=== PATIENT | female | born 1980 | race Asian ===

== ENCOUNTER 2016-08-30 17:45 | Emergency (ER) | payer BC ==
[2016-08-30 17:51] VITALS: BMI 21.3
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
[2016-08-30 18:58] LABS: BASOPHIL 0.9 % (0-2.0); MCH 29.8 pg (25.7-33.7); MCHC 33.4 g/dl (32.0-36.0); MEAN CELL VOLUME 89.2 fl (80-96); MEAN PLT VOLUME 8.5 fl (7.5-11.1); NEUTROPHILS 51.1 % (42.8-82.8); PLATELET COUNT 200 K/MM3 (134-434); RDW 13.6 % (11.6-15.6); WHITE BLOOD COUNT 9.4 K/mm3 (4.0-10.0)
[2016-08-30 19:41] LABS: ALBUMIN 4.2 g/dl (3.4-5.0); ALK PHOS 40 U/L (45-117); ANION GAP 7 (8-16); CALCIUM 9.1 mg/dL (8.5-10.1); CO2 26 mmol/L (21-32); CREATININE 0.7 mg/dL (0.55-1.02); GLUCOSE,RANDOM 90 mg/dL (74-106); SGOT/AST 17 U/L (15-37); SGPT/ALT 15 U/L (12-78)
[2016-08-30 19:56] LABS: URINE APPEARANCE CLEAR; URINE BILIRUBIN NEGATIVE (NEGATIVE); URINE BLOOD NEGATIVE (NEGATIVE); URINE COLOR LT. YELLOW; URINE GLUCOSE (UA) NEGATIVE (NEGATIVE); URINE KETONE NEGATIVE (NEGATIVE); URINE NITRITE NEGATIVE (NEGATIVE); URINE PROTEIN NEGATIVE (NEGATIVE); URINE UROBILINOGEN 0.2 E.U/dl E.U./dl (0.2-1.0)
[2016-08-30 19:57] LABS: URINE LEUK ESTERASE 2+ (NEGATIVE)
[2016-08-30 20:10] LABS: URINE RBC 1 /hpf (0-3); URINE WBC 20 /hpf (3-5)
[2016-08-30] MEDS ORDERED: KETOROLAC TROMETHAMINE 30 MG/1 ML VIAL IVPUSH ONE (21:55)
[2016-08-30] MEDS ORDERED: KETOROLAC TROMETHAMINE 30 MG/1 ML VIAL ONE (22:01)
[2016-08-31 01:47] VITALS: BP 120/73; PULSE 62; TEMP 98.5
== END 2016-08-30 22:37 | disposition home or self-care (01) ==
LOC: JER 17:45
PROC: 3E0333Z Introduction of Anti-inflammatory into Peripheral Vein, Percutaneous Approach (ICD-10-PCS; principal; 2016-08-30)
DX: R10.32 Left lower quadrant pain (principal); N83.202 Unspecified ovarian cyst, left side
CPT/HCPCS: 36415; 74177-TC; 76830-TC; 80053; 81003; 81015; 84703; 85025; 99283-25; Q9967

== ENCOUNTER 2018-12-18 17:58 | Inpatient (IN) | payer BC, OTHER ==
--- NOTE | 2018-12-18 19:11 | PDOC ---
History of Present Illness - General Chief Complaint: Pain, Acute Stated Complaint: APPENDICITIS Time Seen by Provider: 12/18/18 18:33 History Source: Patient - History of Present Illness Initial Comments: 12/18/18 19:04 38 yo F with Hx of R ovarian cyst, L4-L5 herniated disc presented to the ED from her PMD office ( Dr. Waggoner) for abdominal pain. Pt states that this pain began early yesterday in the lower abdomen. pt states that nothing makes the pain better or worse. Pt describes a stabbing pain 7/10 intensity. pt states the pain does not radiate. Pt endorses nausea but denies vomiting, diarrhea, constipation. Pt states she has dizziness, headaches. Pt states her LMP was last week. Pt denies sexual activity. Pt denies dysuria, hematuria, hematochezia. Modifying Factors: worse with: eating, medication (has not tried taking anything for pain) Past History - Past Medical History Allergies/Adverse Reactions: Allergies Allergy/AdvReac Type Severity Reaction Status Date / Time cyclobenzaprine HCl Allergy Intermediate Rash Verified 08/30/16 17:46 [From Flexeril] Home Medications: Ambulatory Orders Cholecalciferol (Vitamin D3) [Vitamin D3 -] 1,000 unit PO DAILY 12/18/18 COPD: No CHF: No DVT: No Dementia: No - Surgical History Comments:: 12/18/18 19:12 Parathyroidectomy, 201412/18/18 19:12 - Reproductive History LMP comment: last week Comment:: 12/18/18 19:13 Hx of R ovarian cyst - Immunization History Immunization Up to Date: Yes - Psycho Social/Smoking Cessation Hx Smoking Status: No Smoking History: Never smoked Hx Alcohol Use: No Drug/Substance Use Hx: No Review of Systems - Review of Systems Able to Perform ROS?: Yes Constitutional: Yes: Weight Stable. No: Chills, Diaphoresis, Fever, Loss of Appetite, Weakness, Unintentional Wgt. Loss, Unexplained wgt Loss Respiratory: No: Shortness of Breath Cardiac (ROS): Yes: Lightheadedness. No: Chest Pain ABD/GI: Yes: Nausea, Abdominal cramping. No: Blood Streaked Bowels, Constipated , Diarrhea, Poor Appetite, Rectal Bleeding, Vomiting, Tarry Stools : Yes: Flank Pain. No: Dysuria, Discharge, Frequency, Incontinence Musculoskeletal: Yes: Back Pain Endocrine: No: Change in Weight *Physical Exam - Vital Signs Last Vital Signs Temp Pulse Resp BP Pulse Ox 98.2 F 67 16 116/74 100 12/18/18 18:05 12/18/18 18:05 12/18/18 18:05 12/18/18 18:05 12/18/18 18:05 - Physical Exam General Appearance: Yes: Nourished, Appropriately Dressed HEENT: positive: EOMI, Normal Voice, Pharynx Normal. negative: Pharyngeal Erythema Neck: positive: Normal Thyroid, Lymphadenopathy (L) Respiratory/Chest: positive: Lungs Clear, Normal Breath Sounds. negative: Crackles, Rales, Rhonchi, Stridor, Wheezing Cardiovascular: positive: Regular Rhythm, Regular Rate, S1, S2 Gastrointestinal/Abdominal: positive: Normal Bowel Sounds, Tender (RLQ, LLQ, suprapubic tenderness to palpation . + Hull sign , + Left CVA tenderness ), Soft, Tenderness. negative: Distended, Hepatomegaly Rectal Exam: positive: normal exam, normal rectal tone, other (No stool in vault , good sphincter tone, no external hemorrhoid visualized, no internal hemorrhoid felt , no active bleeding noted, no blood on tip of glove ). negative: melena Musculoskeletal: positive: CVA Tenderness (L) Extremity: positive: Normal Capillary Refill, Normal Inspection Integumentary: positive: Normal Color, Dry, Warm Neurologic: positive: Fully Oriented ED Treatment Course - LABORATORY CBC & Chemistry Diagram: 12/18/18 19:25 12/18/18 19:25 Medical Decision Making - Medical Decision Making 12/18/18 19:23 38 yo F presented to the ED with lower abdominal pain from PMD -r/o appendicitis -r/o ovarian cyst -r/o pyelonephritis -CT abdomen pelvis with oral contrast -bedside u/s suggestive of appendicitis, + ultrasonographic murphys sign. Surgery consulted -+ CVA tenderness on L. awaiting Ucx. -pending CMP, CBC, lipase -IVF -pain mgmt prn -NPO after midnight in case of procedure -EKG reviewed, NSR 12/18/18 19:55 12/18/18 23:[address] findings, possible Crohn's disease CT findings: There is marked thickening and irregularity of the terminal ileum. This appearance is suspicious for Crohn's disease. Clinical correlation is advised. No CT evidence of appendicitis. The liver, spleen, pancreas, adrenal glands and kidneys demonstrate no significant abnormalities. There are a few small hypodensities within the liver that most likely represent cysts, however, they 're too small to accurately characterize. The gallbladder is clear. Spoke with GI [facility] (Dr. Gomez). unclear whether pt has Crohns vs mesenteric ileitis. recommends keeping NPO, IVF. admit to GI service. possible colonoscopy outpt or next week. 12/18/18 23:59 Rectal exam performed. see PE. FOBT sent Discharge - Follow up/Referral Referrals: Ya Waggoner MD [Primary Care Provider] - - Patient Discharge Instructions - Post Discharge Activity
[2018-12-18 19:38] LABS: BASO % 0.9 % (0-2.0); EOS % 12.3 % (0-4.5); HEMATOCRIT 38.2 % (32.4-45.2); HEMOGLOBIN 12.8 GM/dL (10.7-15.3); MCHC 33.5 g/dl (32.0-36.0); MEAN CELL VOLUME 89.6 fl (80-96); MEAN PLT VOLUME 8.4 fl (7.5-11.1); NEUT % 40.8 % (42.8-82.8); PLATELET COUNT 241 K/MM3 (134-434); RBC 4.26 M/mm3 (3.60-5.2); RDW 13.2 % (11.6-15.6); WHITE BLOOD COUNT 8.6 K/mm3 (4.0-10.0)
[2018-12-18 19:49] LABS: INR 1.13 (0.83-1.09); PROTHROMBIN TIME (PATIENT) 13.3 SEC (9.7-13.0)
--- NOTE | 2018-12-18 19:49 | PDOC ---
Documentation entered by Blessing Parra SCRIBE, acting as scribe for Yumi Matos DO. Yumi Matos DO: This documentation has been prepared by the Aida thomas Adrianna, SCRIBE, under my direction and personally reviewed by me in its entirety. I confirm that the documentation accurately reflects all work, treatment, procedures, and medical decision making performed by me. Attending Attestation - Resident Resident Name: MelnidaCriselda - ED Attending Attestation I have performed the following: I have examined & evaluated the patient, The case was reviewed & discussed with the resident, I agree w/resident's findings & plan, Exceptions are as noted - HPI HPI: The patient is a 38 year old female, with a significant PMH of right ovarian cysts, L4-L5 disc herniation, who presents to the ED for evaluation of abdominal pain for 2 days. Patient notes sudden onset lower abdominal pain that began yesterday morning, which she describes as stabbing, is a 7/10 in nature, and is worse with eating. Patient endorses associated nausea, dizziness, and headache. Otherwise, denies any complaints. LMP was last week, denies any sexual activity. Allergies: cyclobenzaprine HCl Surgical History: Parathyroidectomy Social History: Denies EtOH, tobacco, or illicit drug use PCP: Dr. Waggoner - Physicial Exam PE: Constitutional: Awake, alert, oriented. No acute distress. Head: Normocephalic. Atraumatic Eyes: EOMI. Conjunctivae are not pale. ENT: Mucous membranes are moist and intact. Neck: Supple. Full ROM. No lymphadenopathy. Cardiovascular: Regular rate. Regular rhythm. S1, S2 regular. Distal pulses are 2+ and symmetric. Pulmonary/Chest: No evidence of respiratory distress. Clear to auscultation bilaterally No wheezing, rales or rhonchi. Abdominal: +Tender to palpation over McBurnys. +Left lower pelvis tenderness to palpation (patient has an ovarian cyst at this site). Soft and non-distended. No rebound, guarding or rigidity. No organomegaly. No palpable masses. Good bowel sounds. Back: +Left CVA tenderness. Musculoskeletal: No edema. No cyanosis. No clubbing. Full range of motion in all extremities. Nocalf tenderness. Radial/pedal pulses are intact and 2+ bilaterally Skin: +Well-healed anterior scar over the throat from a parathyroidectomy. Skin is warm and dry. No petechiae. No purpura. Neurological: Alert and oriented to person, place, and time. Cranial nerves II -XII are grossly intact. Normal speech. Strength is grossly symmetric. No sensory deficits. Psychiatric: Good eye contact. Normal interaction, affect and behavior. 12/18/18 19:44 - Medical Decision Making 12/18/18 19:44 I, Dr. Yumi Matos, DO, attest that this document has been prepared under my direction and personally reviewed by me in its entirety. I further attest, that it accurately reflects all work, treatment, procedures and medical decision -making performed by me. a/p: 38yo female with abd pain and nausea that started today -sent from Dr. Skaggs for eval of poss appy -RLQ pain, also LLQ pain/l cva ttp -no v/d -at [facility] at 4p -pt with pain over mc burneys point, no rebound ttp, also L pelvic pain and L cva pain -hx of ovarian cysts as well -will send labs -bedside ultrasound shows enlarged noncompressible appy -will send for ct -Family requests Dr. Tariq 12/18/18 19:[address] Tariq who is at the bedside to see the patient based on ultrasound results, but requests ct 12/18/18 19:57 no elevated wbc ua pending, chem pending ct pending 12/18/18 23:25 inflamed terminal ileum - dr. tariq updated, not acute appy call placed to Dr. Gomez 12/18/18 23:30 dr tariq updated resident updated the fam/pt and currently is discussing the case with Dr. Gomez 12/19/18 00:14 resident discussed the case with [facility] who accepts pt to service Heart Score/ECG Review - ECG Intrepretation Comment:: 12/18/18 19:47 sinus at 64, nl axis, incomplete rbbb, no acute st/t wave findings ED Treatment Course - LABORATORY CBC & Chemistry Diagram: 12/18/18 19:25 12/18/18 19:25 - ADDITIONAL ORDERS Additional order review: Laboratory Results 12/18/18 12/18/18 12/18/18 21:52 19:25 19:25 PT with INR INR Sodium Potassium Chloride Carbon Dioxide Anion Gap BUN Creatinine Est GFR (CKD-EPI)AfAm Est GFR (CKD-EPI)NonAf Random Glucose Calcium Total Bilirubin AST ALT Alkaline Phosphatase Total Protein Albumin Serum , Qual Negative Urine Color Yellow Urine Appearance Clear Urine pH 6.5 Ur Specific [place] 1.007 L Urine Protein Negative Urine Glucose (UA) Negative Urine Ketones Trace H Urine Blood Negative Urine Nitrite Negative Urine Bilirubin Negative Urine Urobilinogen 0.2 Ur Leukocyte Esterase Negative Blood Type O POSITIVE Antibody Screen Negative 12/18/18 12/18/18 19:25 19:25 PT with INR 13.30 H INR 1.13 H Sodium 139 Potassium 4.4 Chloride 106 Carbon Dioxide 27 Anion Gap 7 L BUN 15.9 Creatinine 0.8 Est GFR (CKD-EPI)AfAm 109.16 Est GFR (CKD-EPI)NonAf 94.18 Random Glucose 83 Calcium 9.1 Total Bilirubin 0.6 AST 15 ALT 15 Alkaline Phosphatase 49 Total Protein 6.9 Albumin 4.3 Serum , Qual Urine Color Urine Appearance Urine pH Ur Specific [place] Urine Protein Urine Glucose (UA) Urine Ketones Urine Blood Urine Nitrite Urine Bilirubin Urine Urobilinogen Ur Leukocyte Esterase Blood Type Antibody Screen 12/18/18 19:25 RBC 4.26 MCV 89.6 MCHC 33.5 RDW 13.2 MPV 8.4 Neutrophils % 40.8 L D Lymphocytes % 36.0 Monocytes % 10.0 Eosinophils % 12.3 H Basophils % 0.9 - RADIOLOGY Radiograph Interpretation: EXAM#: TYPE/EXAM: RESULT: [id number] CT/ABDOMEN PELVIS CT WITH CONTR HISTORY PROVIDED: Rule out appendicitis. IMPRESSION: 1. Thickening and irregularity of the terminal ileum suspicious for Crohn's disease. 2. No CT evidence of appendicitis. Please see above discussion. Reported By: Ryan Taveras MD 12/18/18 23:20
[2018-12-18 20:17] LABS: ALBUMIN 4.3 g/dl (3.4-5.0); BILIRUBIN,TOTAL 0.6 mg/dL (0.2-1); BLOOD UREA NITROGEN 15.9 mg/dL (7-18); CALCIUM 9.1 mg/dL (8.5-10.1); CREATININE 0.8 mg/dL (0.55-1.3); POTASSIUM 4.4 mmol/L (3.5-5.1); TOT PROT 6.9 g/dl (6.4-8.2)
--- NOTE | 2018-12-18 20:49 | CONSULT ---
Consult Consult Specialty:: Surgery Reason for Consultation:: abdominal pain - History of Present Illness Chief Complaint: abdominal pain History of Present Illness: The patient is a 38 year old female, with a significant PMH of right ovarian cysts, L4-L5 disc herniation, who presents to the ED for evaluation of abdominal pain for 2 days. Patient notes sudden onset lower abdominal pain that began yesterday morning, which she describes as stabbing, is a 7/10 in nature, and is worse with eating. Patient endorses associated nausea, dizziness, and headache. Otherwise, denies any complaints. LMP was last week, denies any sexual activity.Patient admits to have history of ruptured ovarian cyst mimicking diverticulitis - History Source History Provided By: Patient - Past Medical History ...LMP Comment: last week - Alcohol/Substance Use Hx Alcohol Use: No - Smoking History Smoking history: Never smoked Home Medications - Allergies Allergies/Adverse Reactions: Allergies Allergy/AdvReac Type Severity Reaction Status Date / Time cyclobenzaprine HCl Allergy Intermediate Rash Verified 08/30/16 17:46 [From Flexeril] - Home Medications Home Medications: Ambulatory Orders Cholecalciferol (Vitamin D3) [Vitamin D3 -] 1,000 unit PO DAILY 12/18/18 Physical Exam Vital Signs: Vital Signs Temperature 98.2 F 12/18/18 18:05 Pulse Rate 67 12/18/18 18:05 Respiratory Rate 16 12/18/18 18:05 Blood Pressure 116/74 12/18/18 18:05 O2 Sat by Pulse Oximetry (%) 100 12/18/18 18:05 Constitutional: Yes: Well Nourished, No Distress Eyes: Yes: Conjunctiva Clear HENT: Yes: Normocephalic Neck: Yes: Supple Cardiovascular: Yes: Regular Rate and Rhythm Respiratory: Yes: CTA Bilaterally Gastrointestinal: Yes: Soft, Tenderness (direct tenderness at RLQ but no rebound tenderness) ...Rectal Exam: Yes: Deferred Labs: CBC, BMP 12/18/18 19:25 12/18/18 19:25 Problem List - Problems (1) Abdominal pain Assessment/Plan: r/o acute appendicitis CT scan of the abdomen and pelvis NPO, IVF Code(s): R10.9 - UNSPECIFIED ABDOMINAL PAIN
[2018-12-18] MEDS: LACTATED RINGERS SOLUTION 1,000 ML/1,000 ML INFUS.BAG IV SCH (21:53)
[2018-12-18 22:11] LABS: PH,URINE 6.5 (5.0-8.0); URINE APPEARANCE CLEAR; URINE BILIRUBIN NEGATIVE (NEGATIVE); URINE COLOR YELLOW; URINE GLUCOSE (UA) NEGATIVE (NEGATIVE); URINE KETONE TRACE (NEGATIVE); URINE LEUK ESTERASE NEGATIVE (NEGATIVE); URINE NITRITE NEGATIVE (NEGATIVE); URINE PROTEIN NEGATIVE (NEGATIVE); URINE UROBILINOGEN 0.2 mg/dL (0.2-1.0)
--- NOTE | 2018-12-18 23:55 | PN ---
Teaching Attending Note Name of Resident: Carol Alexandre ATTENDING PHYSICIAN STATEMENT I saw and evaluated the patient. I reviewed the resident's note and discussed the case with the resident. I agree with the resident's findings and plan as documented. SUBJECTIVE: Patient is a 38 year old woman with a PMH of Right ovarian cysts, L4-L5 disc herniation and Parathyroidectomy who presents to the ER with abdominal pain for 2 days. Patient notes sudden onset of lower abdominal pain that began yesterday morning, which she describes as stabbing, is a 7/10 in nature, and is worse with eating. Patient has associated nausea, dizziness, and headache. Denies fever, chills, dysuria, frequency or urgency. LMP was last week, denies any recent sexual activity. Patient admits to have history of ruptured ovarian cyst mimicking diverticulitis. Denies alcohol, tobacco, or illicit drug use OBJECTIVE: Alert Vital Signs Period Temp Pulse Resp BP Sys/Rodriguez Pulse Ox Last 24 Hr 98.2 F 67 16 116/74 100 HEENT: No Jaundice, eye redness or discharge, PERRLA, EOMI. Normocephalic, atraumatic. External ears are normal and hearing is grossly intact. No nasal discharge. Neck: Supple, nontender. No palpable adenopathy or thyromegaly. No JVD Chest: Good effort. Clear to auscultation and percussion. Heart: Regular. No S3, rub or murmur Abdomen: Not distended, soft, nontender and no HSM. No rebound or guarding. Normal bowel sounds. Ext: Peripheral pulses intact. No leg edema. Skin: Warm and dry. No petechiae, rash or ecchymosis. Neuro: Alert. Oriented x3. CN 2-12 grossly intact. Sensation grossly intact in all four extremities and DTR are symmetric. Psych: Appropriate mood and affect. Good insight. Current Medications Generic Name Dose Route Start Last Admin Trade Name Freq PRN Reason Stop Dose Admin Lactated Ringer's 1,000 ml in 1,000 mls @ 83 mls/hr 12/18/18 21:15 12/18/18 21:53 Lactated Ringers Solution IV 83 mls/hr ASDIR LA Administration Home Medications Medication Instructions Recorded Cholecalciferol (Vitamin D3) 1,000 unit PO DAILY 12/18/18 [Vitamin D3 -] Abnormal Lab Results 12/18/18 12/18/18 12/18/18 19:25 19:25 19:25 Neutrophils % 40.8 L D Eosinophils % 12.3 H PT with INR 13.30 H INR 1.13 H Anion Gap 7 L Ur Specific [place] Urine Ketones 12/18/18 21:52 Neutrophils % Eosinophils % PT with INR INR Anion Gap Ur Specific [place] 1.007 L Urine Ketones Trace H ASSESSMENT AND PLAN: 1. Terminal Ileitis/?Crohn's disease - CT scan of the abdomen and pelvis with IV and oral contrast showed "thickening and irregularity of the terminal ileum suspicious for Crohn's disease. No CT evidence of appendicitis." Will continue comprehensive care for all of patient s comorbid conditions. 2. DVT prophylaxis - Lovenox 40 mg SQ q 24 hours. 3. Advance directives - Full code
[2018-12-19] MEDS ORDERED: ACETAMINOPHEN 325 MG TABLET (FP) PO PRN (00:04)
[2018-12-19] MEDS ORDERED: SODIUM CHLORIDE 0.9% 1000 ML INFUS.BAG IV ONE (00:11)
[2018-12-19 01:57] VITALS: BMI 22.1
[2018-12-19] MEDS: LACTATED RINGERS SOLUTION 1,000 ML/1,000 ML INFUS.BAG IV SCH (09:06)
--- NOTE | 2018-12-19 09:12 | CON.GI ---
Consult Consult Specialty:: GI Referred by:: Dr. Ya Waggoner Reason for Consultation:: Abdominal pain - History of Present Illness Chief Complaint: Back pain and abdominal pain History of Present Illness: 38F admitted through [facility] for evaluation of 2 days of back pain stiffness. She was seen by her PMD, abdominal tenderness was elicitted during her exam and she was sent to the ER. CT scan revealed ileitis. She denies chronic abdominal complaints, diarrhea, rectal bleeding, abdominal pain. Peripheral eosinophils were elevated and she states they have been elevated since 2017. She had an uneventful trip to There is no family history of Crohn's / IBD. 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 She was noted guaiac negative in the ED. Back pain has improved. She has never had an upper endoscopy or colonoscopy. There is no family history of colon cancer or other GI malignancy. 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 Father: : murdered. 1 sister: healthy. No children. No fammily history of IBD/Colorectal cancer Review of Systems - Review of Systems Constitutional: denies: Fever, Night Sweats, Unintentional Wgt. Loss Cardiovascular: denies: Chest Pain Respiratory: denies: Cough Gastrointestinal: reports: Abdominal Pain, Nausea. denies: Constipation, Diarrhea, Melena, Rectal Bleeding, Vomiting Blood Physical Exam-GI Vital Signs: Vital Signs Temperature 97.9 F 12/19/18 06:00 Pulse Rate 58 L 12/19/18 06:00 Respiratory Rate 16 12/19/18 06:00 Blood Pressure 99/62 12/19/18 06:00 O2 Sat by Pulse Oximetry (%) 99 12/19/18 04:00 Constitutional: Yes: Calm Eyes: No: Sclera Icterus Cardiovascular: Yes: Regular Rate and Rhythm. No: Murmur Respiratory: Yes: CTA Bilaterally Gastrointestinal Inspection: No: Distention ...Auscultate: Yes: Normoactive Bowel Sounds ...Palpate: Yes: Tenderness (TTP RLQ). No: Hepatomegaly, Splenomegaly ...Percussion: No: Tympanitic Edema: No (No LE edema) Neurological: Yes: Alert Labs: CBC, BMP 12/18/18 19:25 12/18/18 19:25 INR, PTT INR 1.13 (0.83-1.09) H 12/18/18 19:25 Hepatic Panel Total Bilirubin 0.6 mg/dL (0.2-1) 12/18/18 19:25 AST 15 U/L (15-37) 12/18/18 19:25 ALT 15 U/L (13-61) 12/18/18 19:25 Alkaline Phosphatase 49 U/L (45-117) 12/18/18 19:25 Albumin 4.3 g/dl (3.4-5.0) 12/18/18 19:25 Imaging - Results Cat Scan: Report Reviewed, Image Reviewed Problem List - Problems (1) Ileitis, terminal Assessment/Plan: No chronic bowel symptomatology: ? self limited ileitis, ? Crohn's Periphheral eosinophilia can accompany IBD/Crohn's, however hematology evaluation would be reasonable. Ordered Stool for O&P, Strongyloides Ab. Advanced diet to full liquids then as tolerated Levaquin/Flagyl started. 5 day course Close outpatient follow-up if continuing to improve and will need follow-up colonoscopy for further evaluation and tissue diagnosis. If continued clinical improvement, this can be performed on an outpatient basis. Ordered Screening hepatitis B serologies, IBD serologies, CRP and quantiferon gold in preparation for possible crohn's biologic therapy. 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
[2018-12-19] MEDS ORDERED: FLU VACCINE QUAD 60 MCG/0.5 ML (MDV 19-20) IM ONE (10:23)
[2018-12-19] MEDS ORDERED: levoFLOXacin 750 MG TABLET PO SCH (10:30)
--- NOTE | 2018-12-19 10:31 | PN ---
Progress Note, Physician Chief Complaint: Pt lying in bed afebrile,abdominal pain improved CT abd findings noted GI consult appreciated Rec to advance diet and if tolerates d/c home on oral antibiotics and f/u as outpatient and colonoscopynas outpatient - Current Medication List Current Medications: Active Medications Acetaminophen (Tylenol -) 650 mg PO Q6H PRN PRN Reason: Fever Or Pain Lactated Ringer's (Lactated Ringers Solution) 1,000 ml in 1,000 mls @ 83 mls/ hr IV ASDIR LA Last Admin: 12/19/18 09:06 Dose: 83 mls/hr Influenza Virus Vaccine Quadrival (Flulaval Quad [id number]) 60 mcg IM .ONCE ONE Stop: 12/19/18 10:24 Levofloxacin (Levaquin) 500 mg PO DAILY LA Metronidazole (Flagyl -) 500 mg PO TID COUNTS INCLUDE 234 BEDS AT THE [facility] - Objective Vital Signs: Vital Signs Temperature 97.9 F 12/19/18 06:00 Pulse Rate 58 L 12/19/18 06:00 Respiratory Rate 16 12/19/18 06:00 Blood Pressure 99/62 12/19/18 06:00 O2 Sat by Pulse Oximetry (%) 99 12/19/18 04:00 Constitutional: Yes: No Distress Eyes: Yes: Conjunctiva Clear HENT: Yes: Atraumatic Neck: Yes: Supple, Trachea Midline Cardiovascular: Yes: Regular Rate and Rhythm Respiratory: Yes: Regular, CTA Bilaterally Gastrointestinal: Yes: Normal Bowel Sounds, Soft, Tenderness (rt lower quadrant on RT side) Musculoskeletal: Yes: WNL Extremities: Yes: WNL Peripheral Pulses WNL: Yes Neurological: Yes: WNL ...Motor Strength: WNL Psychiatric: Yes: WNL Labs: CBC, BMP 12/18/18 19:25 12/18/18 19:25 INR, PTT INR 1.13 (0.83-1.09) H 12/18/18 19:25 - ....Imaging Cat Scan: Report Reviewed Assessment/Plan Ileitis ,r/o crohns disease of ileum Discogenic pain back peripheral eosinophelia PLAN Continue antibiotics as re by GI Advance diet as tolerated Will f/u labs GI f/u will discharge patient if she tolerates diet on oral antibiotics and f/u with GI as OUTpatient for further W/U
--- NOTE | 2018-12-19 12:34 | PN ---
Progress Note, Physician - Current Medication List Current Medications: Active Medications Acetaminophen (Tylenol -) 650 mg PO Q6H PRN PRN Reason: Fever Or Pain Lactated Ringer's (Lactated Ringers Solution) 1,000 ml in 1,000 mls @ 83 mls/ hr IV ASDIR LA Last Admin: 12/19/18 09:06 Dose: 83 mls/hr Levofloxacin (Levaquin -) 500 mg PO DAILY LA Metronidazole (Flagyl -) 500 mg PO TID LA - Objective Vital Signs: Vital Signs Temperature 98.2 F 12/19/18 10:00 Pulse Rate 66 12/19/18 10:00 Respiratory Rate 16 12/19/18 10:00 Blood Pressure 105/66 12/19/18 10:00 O2 Sat by Pulse Oximetry (%) 99 12/19/18 09:00 Labs: CBC, BMP 12/18/18 19:25 12/18/18 19:25 INR, PTT INR 1.13 (0.83-1.09) H 12/18/18 19:25 Problem List - Problems (1) Abdominal pain Code(s): R10.9 - UNSPECIFIED ABDOMINAL PAIN
--- NOTE | 2018-12-19 13:29 | EKG ---
Test Reason : Blood Pressure : / mmHG Vent. Rate : 064 BPM Atrial Rate : 064 BPM P-R Int : 122 ms QRS Dur : 098 ms QT Int : 424 ms P-R-T Axes : 006 021 053 degrees QTc Int : 437 ms NORMAL SINUS RHYTHM INCOMPLETE RIGHT BUNDLE BRANCH BLOCK NO PREVIOUS ECGS AVAILABLE Confirmed by KWAKU LEVI MD ([id number]) on 12/19/2018 1:29:19 PM Referred By: Confirmed By:KWAKU LEVI MD
[2018-12-19] MEDS ORDERED: metroNIDAZOLE 250 MG TABLET PO SCH (14:00)
--- NOTE | 2018-12-19 14:22 | CONSULT ---
Consult Consult Specialty:: Hematology and oncology Reason for Consultation:: Peripheral eosinophilia - History of Present Illness Chief Complaint: Abdominal pain History of Present Illness: The patient is a 38 yo f w/ PMH hyperparathyroidism, ruptured ovarian cyst, migraines who was sent to the ED by her PCP for abdominal pain. A CT of the abdomen and pelvis showed inflammation in the terminal llium suspicious for inflammatory bowel disease. Hematology was consulted for the evaluation of a persistent eosinophilia. On interview, the patient was resting comfortably in her bed. Her abdominal pain is improved. Patient states that she has had a history of peripheral eosinophilia, but has not seen a cycle director for it and has not had a workup. She was sent to an vending route servicer and was tested for allergies, all of which were negative. Of note, she endorses that her aunt and grandmother both had peripheral eosinophilia in the past. She denies any family history of blood disorders or cancers. 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 07/13) Home Medications - Allergies Allergies/Adverse Reactions: Allergies Allergy/AdvReac Type Severity Reaction Status Date / Time cyclobenzaprine HCl Allergy Intermediate Rash Verified 08/30/16 17:46 [From Flexeril] - Home Medications Home Medications: Ambulatory Orders Cholecalciferol (Vitamin D3) [Vitamin D3 -] 1,000 unit PO DAILY 12/18/18 levoFLOXacin [Levaquin] 500 mg PO DAILY 7 Days #7 tab 12/19/18 metroNIDAZOLE [Flagyl -] 500 mg PO TID #21 tablet 12/19/18 Review of Systems - Review of Systems Constitutional: denies: Chills, Fever Cardiovascular: denies: Chest Pain, Palpitations, Shortness of Breath Respiratory: denies: Cough, SOB, SOB on Exertion, Wheezing Gastrointestinal: reports: Abdominal Pain. denies: Constipation, Diarrhea, Dysphagia Genitourinary: denies: Burning, Discharge, Dysuria, Flank Pain Hematology/Lymphatic: denies: Easily Bruised, Excessive Bleeding, Swollen Glands Physical Exam Vital Signs: Vital Signs Temperature 98.2 F 12/19/18 10:00 Pulse Rate 66 12/19/18 10:00 Respiratory Rate 16 12/19/18 10:00 Blood Pressure 105/66 12/19/18 10:00 O2 Sat by Pulse Oximetry (%) 99 12/19/18 09:00 Constitutional: Yes: Well Nourished, No Distress, Calm HENT: Yes: Atraumatic, Normocephalic Cardiovascular: Yes: Regular Rate and Rhythm, S1, S2. No: Gallop, Murmur, Rub Respiratory: Yes: Regular, CTA Bilaterally Gastrointestinal: Yes: Normal Bowel Sounds, Soft Edema: No Neurological: Yes: Alert, Oriented, Cran Nerves II-XII Intact Psychiatric: Yes: Alert, Oriented Labs: CBC, BMP 12/18/18 19:25 12/18/18 19:25 Assessment/Plan The patient is a 38 yo f w/ PMH hyperparathyroidism, ruptured ovarian cyst, migraines who was sent to the ED by her PCP for abdominal pain. A CT of the abdomen and pelvis showed inflammation in the terminal llium suspicious for inflammatory bowel disease. Hematology was consulted for the evaluation of a persistent eosinophilia. #peripheral eosinophilia -asymptomatic at this time -eos 12.3% this admission, was 7% in 2017 -patient w/ family history of peripheral eosinophilia -It is possible that eosinophilia could be related to the patient's suspected inflammatory bowel disease. -Patient will require outpatient stool for ova and parasite, strongloides, IgE
--- NOTE | 2018-12-19 14:27 | HP ---
DATE OF ADMISSION: 12/18/2018 HISTORY: Patient is a 38-year-old female with a past medical history of problem on the back and parathyroidectomy into the emergency room for evaluation of right lower quadrant pain. Patient has been in the office with the complaints of slight abdominal pain right lower quadrant and during the examination found abdominal tenderness and sent to the ER for evaluation and to rule out appendicitis. She complains of mild right lower quadrant pain radiating to the back. No history of diarrhea. Mild nausea present. No rectal bleeding. No urinary symptoms. Patient had history of discogenic disease in the lower back and in the ER stool guaiac was negative. There is no family history of any GI malignancy or Crohn disease or inflammatory bowel disease. FAMILY HISTORY: Nothing significant. PAST MEDICAL HISTORY: History of parathyroidectomy SURGICAL HISTORY: Parathyroidectomy. PERSONAL HISTORY: Nothing significant. ALLERGIES: She has allergy to FLEXERIL. MEDICATIONS: Patient is taking vitamin D. REVIEW OF SYSTEMS: Constitutional: Patient denies any fever, night sweats, or unintentional weight loss. Cardiovascular: No history of chest pain. Respiratory: No cough. Gastrointestinal: Reports abdominal pain and nausea. Denies constipation, diarrhea, or bleeding from rectum, vomiting. PHYSICAL EXAMINATION: Vital Signs: On examination of the patient in the emergency room, temperature is 98.1, pulse rate 61, blood pressure 113/70, respiratory rate 16, saturation 98. HEENT: Head normal. Neck: Supple. No JVD. Chest: Clear. Cardiovascular: First and 2nd sounds normal. Abdomen: Slight tenderness in the right lower quadrant. Normoactive bowel sounds. No guarding, no tenderness, no hepatomegaly, no splenomegaly. Extremities: No edema. Neurologic: Alert and oriented x3. No apparent motor or sensory deficits. Reflexes normal. Patient had labs done. WBC 8.6, hemoglobin 12.8, hematocrit 38.2, platelets 241, neutrophils 40.8, eosinophils 12.3. Chemistry normal. AST, ALT normal. Serum test negative. PT 13.3, INR 1.13. UA: Ketones trace. Stool occult negative. CT of the abdomen and pelvis done shows thickening and irregularity of the terminal ileum suspicious for Crohn disease. No evidence of appendicitis. Patient is seen by the surgeon who ruled out appendicitis. Supervisor In Circuit Testing seeing the patient. IMPRESSION: Ileitis, terminal failure. The patient was admitted to the floor with admitting diagnosis of terminal ileitis. PLAN: Stool studies. Advance diet to full liquid as tolerated. Flagyl and Levaquin started. I recommend close outpatient follow up and a colonoscopy as an outpatient for further diagnosis. Hepatitis B serologies, IBD serologies. CRP and QuantiFERON test ordered. of Crohn disease of small intestine without complications. Patient is stable on the floor. SWETA KENNY M.D. [id number]
[2018-12-19 15:01] VITALS: BP 103/62; PULSE 62; TEMP 98.3
--- NOTE | 2018-12-19 15:52 | PN ---
Progress Note (short form) - Note Progress Note: CT A/P showed terminal ilietis with no evidence of acute appendicitis Patient has less pain and tolerating clear liquids No surgical intervention necessary at this time Problem List - Problems (1) Abdominal pain Code(s): R10.9 - UNSPECIFIED ABDOMINAL PAIN
--- NOTE | 2018-12-20 07:44 | DS ---
DATE OF ADMISSION: 12/18/2018 DATE OF DISCHARGE: 12/19/2018 DATE OF DICTATION: 12/19/2018 The patient is a 38-year-old female admitted with right lower quadrant abdominal pain. The patient has past medical history of parathyroidectomy and history of peripheral eosinophilia in the past. PAST SURGICAL HISTORY: Parathyroidectomy. ALLERGIES: MUSCLE RELAXANT. MEDICATIONS: The patient is taking vitamin D. PHYSICAL EXAMINATION: Vital Signs: Stable in the emergency room. Head and Neck: Normal. Chest: Clear. Cardiovascular: Normal. Abdomen: Soft. Slight tenderness in the right lower quadrant. No distention. Bowel sounds present. Extremities: No edema. DIAGNOSTIC STUDIES: The patient had an abdominal CT done in the emergency room that showed thickening and irregularity of the terminal ileum, suspicious for Crohn disease. No CT evidence of appendicitis. HOSPITAL COURSE: The patient was seen by Gastroenterology. Impression was self-limited ileitis, Crohn's, and peripheral eosinophilia which can accompany inflammatory bowel disease or Crohn's. The patient was started on Flagyl and Levaquin empirically, and for the peripheral eosinophilia, Hematology consult ordered. Stool ova and parasites and antibody ordered. Recommended to advance the diet and if the patient tolerates the diet can discharge home, according to Gastroenterology, and will do a colonoscopy as an outpatient, and will follow up the lab as an outpatient. The patient was stable in the floor. The patient was given IV fluids. The patient tolerated clear liquids, so discharged home in stable condition. DISCHARGE MEDICATIONS: 1. Flagyl 500 mg 3 times a day. 2. Levaquin 500 mg daily for 7 days. DISCHARGE INSTRUCTIONS: Recommended to see GI as an outpatient and follow up with her primary in 1 week. SWETA KENNY M.D. [id number]
[2018-12-20 22:07] LABS: HEP B CORE AB, TOT Negative (Negative)
--- NOTE | 2018-12-21 16:02 | PN ---
Teaching Attending Note Name of Resident: Nilson Cote ATTENDING PHYSICIAN STATEMENT I saw and evaluated the patient. I reviewed the resident's note and discussed the case with the resident. I agree with the resident's findings and plan as documented. ASSESSMENT AND PLAN: The patient is a 38 yo f w/ PMH hyperparathyroidism, ruptured ovarian cyst, migraines who was sent to the ED by her PCP for abdominal pain. A CT of the abdomen and pelvis showed inflammation in the terminal llium suspicious for inflammatory bowel disease. #peripheral eosinophilia--1000 approx. ? related to infectious vs inflammatory vs allergiv process check stoolova and parasitex x3 , chek strongyloides ab, IgE level Check Quantiferon, ESR, CRP, PAPITO, RF will need to follow up out patietn --contact nos. given discussed with patient and her mother
--- NOTE | 2018-12-21 16:09 | PN ---
Teaching Attending Note Name of Resident: Nilson Cote ATTENDING PHYSICIAN STATEMENT I saw and evaluated the patient. I reviewed the resident's note and discussed the case with the resident. I agree with the resident's findings and plan as documented. ASSESSMENT AND PLAN: The patient is a 38 yo f w/ PMH hyperparathyroidism, ruptured ovarian cyst, migraines who was sent to the ED by her PCP for abdominal pain. A CT of the abdomen and pelvis showed inflammation in the terminal llium suspicious for inflammatory bowel disease. #peripheral eosinophilia--1000 approx. ? related to infectious vs inflammatory vs allergiv process check stoolova and parasitex x3 , chek strongyloides ab, IgE level Check Quantiferon, ESR, CRP, PAPITO, RF will need to follow up out patient --contact nos. given discussed with patient and her mother
== END 2018-12-19 17:25 | disposition home or self-care (01) | DRG 387 ==
LOC: JER 17:58 → JERBED 19:05 → J7W 12-19 01:15
PROVIDERS: ADMIT Family Medicine; ATTEND Family Medicine
DX: K50.00 Crohn's disease of small intestine without complications (principal); D72.1 Eosinophilia; R10.31 Right lower quadrant pain; N83.201 Unspecified ovarian cyst, right side
CPT/HCPCS: 36415; 74177-TC; 80053; 81003; 82272; 83516; 84703; 85025; 85610; 86140; 86255; 86480; 86671; 86682; 86704; 86706; 86707; 86708; 86709; 86850; 86900; 86901; 87177; 87209; 87340; 93005; 93010; 99285-25; Q2036; Q9967